=== PATIENT | male | born 1950 | race Caucasian/White ===

== ENCOUNTER 2017-04-22 16:41 | Emergency (ER) | payer MEDICARE ==
[2017-04-22 17:31] VITALS: BP 200/105
[2017-04-22] MEDS ORDERED: TYLENOL PO ONE ×2 (20:34→20:37)
[2017-04-22] MEDS ORDERED: TYLENOL ONE (20:37)
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
== END 2017-04-22 21:48 | disposition home or self-care (01) ==
LOC: ED 16:41
DX: M79.601 Pain in right arm (principal); G89.29 Other chronic pain; I10 Essential (primary) hypertension; V49.49XA Driver injured in collision with other motor vehicles in traffic accident, initial encounter; Y93.9 Activity, unspecified; Y92.9 Unspecified place or not applicable; Y99.9 Unspecified external cause status
CPT/HCPCS: 99283